=== PATIENT | male | born 1955 | race Caucasian/White ===

== ENCOUNTER 2017-08-10 07:45 | Outpatient (CLI) | payer BC ==
[2017-08-10] MEDS ORDERED: Iopamidol 370 76% 100 ML VIAL ONE (09:00)
--- NOTE | 2017-08-10 10:32 | CT ---
ABDOMEN AND PELVIS CT WITH AND WITHOUT CONTRAST CT UROGRAM: Date: 08/10/17 CLINICAL HISTORY: Microhematuria. FINDINGS: No discrete, radiopaque urinary tract calculus. There is no obstructive uropathy. Delayed phase urogr am CT imaging reveals no focal filling defect within the contrast opacified portions of the kidneys a nd ureters. There is long segment region of nonopacification of left ureter which limits assessment i n this regard. Focal tortuosity is present involving the proximal right ureter producing a focal line ar filling defect. There is a small mass of the posterior and right aspect of the urinary bladder, ju st anterior to the right UVJ measuring 11 mm in diameter. Splenic granulomatous calcification present. No hepatic lesion. No focal parenchymal lesion or adrena l mass. Pancreas is unremarkable. The bowel is not reliably assessed without enteric contrast. No acu te osseous abnormality. IMPRESSION: Bladder mass is present, indicative of malignancy. Recommend cystoscopy for further evaluation. POS: [facility]A
== END 2017-08-10 07:46 | disposition home or self-care (01) ==
LOC: SCSCT 07:45
PROVIDERS: ATTEND Urology
DX: R31.29 Other microscopic hematuria (principal); N32.9 Bladder disorder, unspecified
CPT/HCPCS: 74178

== ENCOUNTER 2024-10-03 06:16 | Day surgery (SDC) | payer BC, MEDICARE ==
[2024-10-02 14:52] VITALS: BMI 25.0
[~2024-10-03 06:16] MED LIST: EPINEPHrine 0.3 MG in Ophthalmic Irrigation Solution 500 ML IRR SCH
[2024-10-03] MEDS ORDERED: PHENYLephrine 2.5% Ophth Soln 15 ml Bottle ONE (06:25)
[2024-10-03] MEDS ORDERED: Cyclopentolate 1% Opth Drop 2 ML BOT ONE (06:25)
[2024-10-03] MEDS ORDERED: Midazolam HCl 2 mg/2 ml Vial ONE (06:53)
[2024-10-03] MEDS ORDERED: fentaNYL 50 mcg/mL 1 mL Vial ONE (06:53)
[2024-10-03] MEDS ORDERED: PROPOFOL 20 ML ONE (06:53)
[2024-10-03] MEDS ORDERED: CEFAZOLIN 1 GM VIAL ONE (07:03)
[2024-10-03] MEDS ORDERED: Bupivacaine 0.75% 10 ML VIAL ONE (07:03)
[2024-10-03] MEDS ORDERED: Lidocaine 1% PF 5 ML VIAL ONE (07:03)
[2024-10-03] MEDS ORDERED: Lidocaine 4% PF 5 ML AMP ONE (07:03)
[2024-10-03] MEDS ORDERED: Dexamethasone 4 mg/ml Vial ONE (07:19)
== END 2024-10-03 08:10 | disposition home or self-care (01) ==
LOC: SDC 06:16
PROVIDERS: ATTEND Ophthalmology Retina Specialist
PROC: 08T43ZZ Resection of Right Vitreous, Percutaneous Approach (ICD-10-PCS; principal; 2024-10-03)
DX: H43.391 Other vitreous opacities, right eye (principal); Z98.890 Other specified postprocedural states
CPT/HCPCS: J0171; J0690; J1100; J2250; J2704; J3010; J3490